=== PATIENT | female | born 1940 | race Caucasian/White ===

== ENCOUNTER 2019-08-23 14:39 | Inpatient (IN) ==
[2019-08-23] MEDS ORDERED: 0.9 % Sodium Chloride 500 ML IVC ONE (15:10)
[2019-08-23 15:30] LABS: Basophils % 0.2 %; Hematocrit 30.4 % (35.3-44.9); Hemoglobin 9.9 g/dL (11.5-15.4); Immature Granulocytes % 0.5 % (0-4); Lymphocytes # 1.1 K/mcL (0.6-4.6); Lymphocytes % 25.3 %; Mean Corpuscular HGB Conc 32.6 g/dL (31.6-35.5); Mean Corpuscular Hemoglobin 28.3 pg (28.0-33.3); Mean Corpuscular Volume 86.9 fL (83.0-100.0); Mean Platelet Volume 9.8 fL (9.4-12.4); Monocytes # 0.2 K/mcL (0.0-1.3); Monocytes % 3.4 %; Neutrophils # 3.1 K/mcL (1.6-8.9); Platelet Count 145 K/mcL (140-400); Red Cell Distribution Width 15.9 % (11.5-14.5); Segmented Neutrophils % 70.6 %; White Blood Count 4.4 K/mcL (4.3-11.1)
[2019-08-23 15:52] LABS: Calcium 7.9 mg/dL (8.6-10.3); Potassium 3.7 mEq/L (3.5-5.1); Troponin I 0.03 ng/mL (< 0.04)
[2019-08-23] MEDS ORDERED: Isovue-370 500 ML BOTTLE IVP ONE (16:12)
[2019-08-23] MEDS ORDERED: *HR* Enoxaparin 40 MG/0.4 ML SYRINGE SQ ONE (17:34)
[2019-08-23 18:01] LABS: Bilirubin,Urine Negative (Negative); Blood,Urine Negative (Negative); Clarity,Urine Clear (Clear); Color,Urine Yellow (Yellow); Glucose,Urine (UA) Normal (Normal); Ketones,Urine Negative (Negative); Leukocyte Esterase,Urine Negative (Negative); Nitrite,Urine Negative (Negative); PH,Urine 6.5 pH Units (5.0-8.0); Protein,Urine Negative (Neg-Trace); Specific Gravity,Urine 1.012 (1.010-1.025); Urobilinogen,Urine Normal (Normal)
[2019-08-23 18:06] LABS: Activated Partial Thrombo Time 32.9 Seconds (26.0-36.0)
[2019-08-23] MEDS ORDERED: Naloxone 0.4 MG/ML INJ IVP PRN (19:41)
[2019-08-23] MEDS ORDERED: cefTRIAXone 1,000 MG in Water for inj. (sterile) 10 ML IVP SCH (21:00)
[2019-08-23] MEDS ORDERED: Azithromycin 500 MG in 0.9 % Sodium Chloride 250 ML IVPB SCH (21:00)
[2019-08-23] MEDS: Acetaminophen 325 MG TABLET PO PRN (23:59)
[2019-08-24 01:46] LABS: Adenovirus Not Detected (Not Detect); Bordetella Pertussis Not Detected (Not Detect); Chlamydophila pneumoniae Not Detected (Not Detect); Coronavirus 229E Not Detected (Not Detect); Coronavirus HKU1 Not Detected (Not Detect); Coronavirus NL63 Not Detected (Not Detect); Coronavirus OC43 Not Detected (Not Detect); Human Metapneumovirus Not Detected (Not Detect); Human Rhinovirus/Enterovirus Not Detected (Not Detect); Influenza A Subtype 2009 H1 Not Detected (Not Detect); Influenza B Not Detected (Not Detect); Mycoplasma pneumoniae Not Detected (Not Detect); Parainfluenza Virus 1 Not Detected (Not Detect); Parainfluenza Virus 2 Not Detected (Not Detect); Parainfluenza Virus 3 Not Detected (Not Detect); Parainfluenza Virus 4 Not Detected (Not Detect); Respiratory Syncytial Virus Not Detected (Not Detect)
[2019-08-24 02:11] LABS: Mean Corpuscular HGB Conc 33.3 g/dL (31.6-35.5); Mean Corpuscular Hemoglobin 28.2 pg (28.0-33.3); Mean Corpuscular Volume 84.7 fL (83.0-100.0); Mean Platelet Volume 9.4 fL (9.4-12.4); Platelet Count 134 K/mcL (140-400); Red Blood Count 3.54 M/mcL (3.82-4.97); Red Cell Distribution Width 15.6 % (11.5-14.5); White Blood Count 3.4 K/mcL (4.3-11.1)
[2019-08-24 02:18] LABS: Prothrombin Time 11.6 Seconds (9.4-12.1)
[2019-08-24 02:20] LABS: Activated Partial Thrombo Time 45.2 Seconds (26.0-36.0)
[2019-08-24 02:31] LABS: BUN/Creatinine Ratio 13 (6-26); Blood Urea Nitrogen 10 mg/dL (8-23); Calcium 7.8 mg/dL (8.6-10.3); Carbon Dioxide 26 mEq/L (23-29); Chloride 104 mEq/L (98-107); Glucose 101 mg/dL (70-105); Osmolality,Calculated 283 (280-300); Potassium 3.3 mEq/L (3.5-5.1); Sodium 137 mEq/L (136-145); eGFR For African Americans > 60 (> 60); eGFR For Non-African Americans > 60 (> 60)
[2019-08-24] MEDS ORDERED: *HR* Heparin 5,000 UNIT/ML VIAL IVP PRN ×2 (05:00)
[2019-08-24] MEDS ORDERED: Heparin 25,000 UNIT/250 ML D5W 25,000 UNIT/250 ML IV.SOLN IVC SCH (05:00)
[2019-08-24] MEDS: Acetaminophen 325 MG TABLET PO PRN ×3 (05:30→21:01)
[2019-08-24] MEDS: *HR* Amiodarone 200 MG TABLET PO SCH (12:32)
[2019-08-24] MEDS: QUEtiapine Fumarate 25 MG TABLET PO SCH (21:01)
[2019-08-24] MEDS: traZODone 50 MG TABLET PO SCH (21:02)
[2019-08-24] MEDS ORDERED: cefTRIAXone 2,000 MG in Water for inj. (sterile) 20 ML IVP SCH (23:00)
[2019-08-25 03:46] LABS: Basophils % 0.3 %; Hematocrit 31.3 % (35.3-44.9); Hemoglobin 10.2 g/dL (11.5-15.4); Immature Granulocytes % 0.3 % (0-4); Lymphocytes # 1.4 K/mcL (0.6-4.6); Lymphocytes % 44.2 %; Mean Corpuscular HGB Conc 32.6 g/dL (31.6-35.5); Mean Corpuscular Hemoglobin 27.9 pg (28.0-33.3); Mean Corpuscular Volume 85.8 fL (83.0-100.0); Mean Platelet Volume 9.4 fL (9.4-12.4); Monocytes # 0.3 K/mcL (0.0-1.3); Neutrophils # 1.4 K/mcL (1.6-8.9); Platelet Count 161 K/mcL (140-400); Red Blood Count 3.65 M/mcL (3.82-4.97); Red Cell Distribution Width 15.9 % (11.5-14.5); Segmented Neutrophils % 46.2 %; White Blood Count 3.1 K/mcL (4.3-11.1)
[2019-08-25 04:09] LABS: BUN/Creatinine Ratio 11 (6-26); Blood Urea Nitrogen 8 mg/dL (8-23); Carbon Dioxide 28 mEq/L (23-29); Chloride 104 mEq/L (98-107); Glucose 92 mg/dL (70-105); Osmolality,Calculated 282 (280-300); Potassium 3.9 mEq/L (3.5-5.1); Sodium 137 mEq/L (136-145); eGFR For African Americans > 60 (> 60); eGFR For Non-African Americans > 60 (> 60)
[2019-08-25] MEDS: *HR* Amiodarone 200 MG TABLET PO SCH (09:05)
[2019-08-25] MEDS: Acetaminophen 325 MG TABLET PO PRN (09:05)
[2019-08-25] MEDS: *HR* HYDROcodone/Acet 5/325 mg TABLET PO PRN (17:24)
[2019-08-25] MEDS: Acetaminophen 325 MG TABLET PO SCH (17:59)
[2019-08-25] MEDS ORDERED: cefTRIAXone 2,000 MG in Water for inj. (sterile) 20 ML IVP SCH (21:00)
[2019-08-25] MEDS: Azithromycin 250 MG TABLET PO SCH (21:17)
[2019-08-25] MEDS: QUEtiapine Fumarate 25 MG TABLET PO SCH (21:18)
[2019-08-25] MEDS: traZODone 50 MG TABLET PO SCH (21:18)
[2019-08-25] MEDS: Ondansetron ODT 4 MG TAB.RAPDIS SL PRN (21:18)
[2019-08-25] MEDS: ALPRAZolam 0.5 MG TABLET PO SCH (21:18)
[2019-08-25] MEDS ORDERED: Azithromycin 500 MG in 0.9 % Sodium Chloride 250 ML IVPB SCH (23:00)
[2019-08-26 04:29] LABS: Basophils % 0.4 %; Eosinophils % 0.4 %; Hematocrit 31.9 % (35.3-44.9); Hemoglobin 10.3 g/dL (11.5-15.4); Immature Granulocytes % 0.4 % (0-4); Lymphocytes # 1.6 K/mcL (0.6-4.6); Lymphocytes % 56.5 %; Mean Corpuscular HGB Conc 32.3 g/dL (31.6-35.5); Mean Corpuscular Hemoglobin 27.8 pg (28.0-33.3); Mean Corpuscular Volume 86.2 fL (83.0-100.0); Mean Platelet Volume 9.2 fL (9.4-12.4); Monocytes # 0.3 K/mcL (0.0-1.3); Monocytes % 10.1 %; Neutrophils # 0.9 K/mcL (1.6-8.9); Platelet Count 179 K/mcL (140-400); Segmented Neutrophils % 32.2 %; White Blood Count 2.8 K/mcL (4.3-11.1)
[2019-08-26 05:10] LABS: Platelet Estimate Normal (Normal); Reactive Lymphocytes Present (Not Present)
[2019-08-26] MEDS: Acetaminophen 325 MG TABLET PO SCH ×2 (06:31→18:17)
[2019-08-26] MEDS: Furosemide 40 MG TABLET PO SCH (08:11)
[2019-08-26] MEDS: *HR* Amiodarone 200 MG TABLET PO SCH (08:11)
[2019-08-26] MEDS: Cefdinir 300 MG CAPSULE PO SCH (21:02)
[2019-08-26] MEDS: *HR* HYDROcodone/Acet 5/325 mg TABLET PO PRN (21:02)
[2019-08-26] MEDS: Azithromycin 250 MG TABLET PO SCH (21:02)
[2019-08-26] MEDS: traZODone 50 MG TABLET PO SCH (21:03)
[2019-08-26] MEDS: QUEtiapine Fumarate 25 MG TABLET PO SCH (21:03)
[2019-08-26] MEDS: ALPRAZolam 0.5 MG TABLET PO SCH (21:03)
[2019-08-27] MEDS: Acetaminophen 325 MG TABLET PO SCH ×2 (06:12→19:31)
[2019-08-27] MEDS: *HR* Amiodarone 200 MG TABLET PO SCH (09:48)
[2019-08-27] MEDS: Furosemide 40 MG TABLET PO SCH (09:48)
[2019-08-27] MEDS: Cefdinir 300 MG CAPSULE PO SCH ×2 (09:48→21:18)
[2019-08-27] MEDS: *HR* HYDROcodone/Acet 5/325 mg TABLET PO PRN ×2 (09:53→16:26)
[2019-08-27] MEDS: ALPRAZolam 0.5 MG TABLET PO SCH (21:18)
[2019-08-27] MEDS: Azithromycin 250 MG TABLET PO SCH (21:18)
[2019-08-27] MEDS: QUEtiapine Fumarate 25 MG TABLET PO SCH (21:19)
[2019-08-27] MEDS: traZODone 50 MG TABLET PO SCH (21:19)
[2019-08-28 04:19] LABS: Basophils % 0.3 %; Eosinophils % 0.8 %; Hematocrit 31.9 % (35.3-44.9); Immature Granulocytes % 0.3 % (0-4); Lymphocytes # 1.4 K/mcL (0.6-4.6); Lymphocytes % 37.1 %; Mean Corpuscular HGB Conc 31.3 g/dL (31.6-35.5); Mean Corpuscular Hemoglobin 27.4 pg (28.0-33.3); Mean Corpuscular Volume 87.4 fL (83.0-100.0); Mean Platelet Volume 9.6 fL (9.4-12.4); Monocytes # 0.4 K/mcL (0.0-1.3); Monocytes % 10.7 %; Platelet Count 207 K/mcL (140-400); Red Blood Count 3.65 M/mcL (3.82-4.97); Red Cell Distribution Width 16.3 % (11.5-14.5); Segmented Neutrophils % 50.8 %; White Blood Count 3.8 K/mcL (4.3-11.1)
[2019-08-28 04:21] LABS: Neutrophils # 1.9 K/mcL (1.6-8.9)
[2019-08-28 04:35] LABS: Anisocytosis 1+ (Not Present); Platelet Estimate Normal (Normal); Reactive Lymphocytes Present (Not Present)
[2019-08-28 04:37] LABS: BUN/Creatinine Ratio 12 (6-26); Blood Urea Nitrogen 10 mg/dL (8-23); Calcium 8.6 mg/dL (8.6-10.3); Carbon Dioxide 25 mEq/L (23-29); Chloride 103 mEq/L (98-107); Glucose 67 mg/dL (70-105); Osmolality,Calculated 283 (280-300); Potassium 3.4 mEq/L (3.5-5.1); Sodium 138 mEq/L (136-145); eGFR For African Americans > 60 (> 60); eGFR For Non-African Americans > 60 (> 60)
[2019-08-28] MEDS: Acetaminophen 325 MG TABLET PO SCH ×2 (06:04→18:42)
[2019-08-28] MEDS: Furosemide 40 MG TABLET PO SCH (07:52)
[2019-08-28] MEDS: *HR* Amiodarone 200 MG TABLET PO SCH (07:52)
[2019-08-28] MEDS: Cefdinir 300 MG CAPSULE PO SCH ×2 (07:53→22:58)
[2019-08-28] MEDS: *HR* HYDROcodone/Acet 5/325 mg TABLET PO PRN ×2 (08:36→23:56)
[2019-08-28] MEDS: ALPRAZolam 0.5 MG TABLET PO PRN (15:03)
[2019-08-28] MEDS: QUEtiapine Fumarate 25 MG TABLET PO SCH (22:58)
[2019-08-28] MEDS: ALPRAZolam 0.5 MG TABLET PO SCH (22:58)
[2019-08-28] MEDS: Azithromycin 250 MG TABLET PO SCH (22:58)
[2019-08-28] MEDS: traZODone 50 MG TABLET PO SCH (22:58)
[2019-08-29] MEDS: Acetaminophen 325 MG TABLET PO SCH (04:53)
[2019-08-29 05:21] LABS: Basophils % 0.2 %; Eosinophils # 0.1 K/mcL (0.0-0.6); Eosinophils % 1.6 %; Hematocrit 33.3 % (35.3-44.9); Hemoglobin 10.6 g/dL (11.5-15.4); Immature Granulocytes % 0.5 % (0-4); Lymphocytes # 1.5 K/mcL (0.6-4.6); Lymphocytes % 34.7 %; Mean Corpuscular HGB Conc 31.8 g/dL (31.6-35.5); Mean Corpuscular Hemoglobin 27.3 pg (28.0-33.3); Mean Corpuscular Volume 85.8 fL (83.0-100.0); Mean Platelet Volume 9.2 fL (9.4-12.4); Monocytes # 0.5 K/mcL (0.0-1.3); Monocytes % 10.6 %; Neutrophils # 2.3 K/mcL (1.6-8.9); Platelet Count 249 K/mcL (140-400); Red Blood Count 3.88 M/mcL (3.82-4.97); Segmented Neutrophils % 52.4 %; White Blood Count 4.4 K/mcL (4.3-11.1)
[2019-08-29 05:37] LABS: Platelet Estimate Normal (Normal); Reactive Lymphocytes Present (Not Present)
[2019-08-29 05:44] LABS: BUN/Creatinine Ratio 14 (6-26); Blood Urea Nitrogen 12 mg/dL (8-23); Calcium 8.6 mg/dL (8.6-10.3); Carbon Dioxide 28 mEq/L (23-29); Chloride 103 mEq/L (98-107); Glucose 78 mg/dL (70-105); Osmolality,Calculated 285 (280-300); Potassium 3.7 mEq/L (3.5-5.1); Sodium 138 mEq/L (136-145); eGFR For African Americans > 60 (> 60); eGFR For Non-African Americans > 60 (> 60)
[2019-08-29] MEDS: ALPRAZolam 0.5 MG TABLET PO PRN (07:02)
[2019-08-29] MEDS: Cefdinir 300 MG CAPSULE PO SCH (08:25)
[2019-08-29] MEDS: *HR* Amiodarone 200 MG TABLET PO SCH (08:25)
[2019-08-29] MEDS: Furosemide 40 MG TABLET PO SCH (08:26)
[2019-08-29] MEDS ORDERED: Sennosides/Docusate Sodium TABLET PO PRN (09:47)
[2019-08-29] MEDS: *HR* HYDROcodone/Acet 5/325 mg TABLET PO PRN (18:22)
[2019-08-29] MEDS: traZODone 50 MG TABLET PO SCH (21:32)
[2019-08-29] MEDS: QUEtiapine Fumarate 25 MG TABLET PO SCH (21:32)
[2019-08-29] MEDS: ALPRAZolam 0.5 MG TABLET PO SCH (21:32)
[2019-08-30] MEDS: *HR* Amiodarone 200 MG TABLET PO SCH (10:01)
[2019-08-30] MEDS: Furosemide 40 MG TABLET PO SCH (10:01)
[2019-08-30] MEDS: ALPRAZolam 0.5 MG TABLET PO PRN (12:50)
[2019-08-30] MEDS: *HR* HYDROcodone/Acet 5/325 mg TABLET PO PRN (15:03)
[2019-08-30] MEDS: ALPRAZolam 0.5 MG TABLET PO SCH (21:52)
[2019-08-30] MEDS: traZODone 50 MG TABLET PO SCH (21:52)
[2019-08-30] MEDS: QUEtiapine Fumarate 25 MG TABLET PO SCH (21:52)
[2019-08-31] MEDS: *HR* Amiodarone 200 MG TABLET PO SCH (09:08)
[2019-08-31] MEDS: Furosemide 40 MG TABLET PO SCH (09:08)
[2019-08-31] MEDS: *HR* HYDROcodone/Acet 5/325 mg TABLET PO PRN (20:48)
[2019-08-31] MEDS: traZODone 50 MG TABLET PO SCH (20:48)
[2019-08-31] MEDS: ALPRAZolam 0.5 MG TABLET PO SCH (20:48)
[2019-08-31] MEDS: QUEtiapine Fumarate 25 MG TABLET PO SCH (20:49)
[2019-09-01] MEDS: Furosemide 40 MG TABLET PO SCH (11:02)
[2019-09-01] MEDS: *HR* Amiodarone 200 MG TABLET PO SCH (11:02)
[2019-09-01] MEDS ORDERED: Lactulose Oral Soln 20 GM/30 ML UDC PO PRN (13:33)
[2019-09-01] MEDS: *HR* HYDROcodone/Acet 5/325 mg TABLET PO PRN (14:12)
[2019-09-01] MEDS: ALPRAZolam 0.5 MG TABLET PO PRN (14:55)
[2019-09-01] MEDS: traZODone 50 MG TABLET PO SCH (20:25)
[2019-09-01] MEDS: ALPRAZolam 0.5 MG TABLET PO SCH (20:25)
[2019-09-01] MEDS: QUEtiapine Fumarate 25 MG TABLET PO SCH (20:25)
[2019-09-02] MEDS: Furosemide 40 MG TABLET PO SCH (10:43)
[2019-09-02] MEDS: *HR* Amiodarone 200 MG TABLET PO SCH (10:43)
[2019-09-02] MEDS: *HR* HYDROcodone/Acet 5/325 mg TABLET PO PRN (18:03)
[2019-09-02] MEDS: QUEtiapine Fumarate 25 MG TABLET PO SCH (20:55)
[2019-09-02] MEDS: ALPRAZolam 0.5 MG TABLET PO SCH (20:55)
[2019-09-02] MEDS: traZODone 50 MG TABLET PO SCH (20:55)
[2019-09-03] MEDS: *HR* Amiodarone 200 MG TABLET PO SCH (09:38)
[2019-09-03] MEDS: Furosemide 40 MG TABLET PO SCH (09:38)
[2019-09-03] MEDS: *HR* HYDROcodone/Acet 5/325 mg TABLET PO PRN ×2 (10:14→17:54)
[2019-09-03] MEDS: Ondansetron ODT 4 MG TAB.RAPDIS SL PRN (18:12)
[2019-09-03] MEDS: ALPRAZolam 0.5 MG TABLET PO PRN (18:12)
[2019-09-03] MEDS: traZODone 50 MG TABLET PO SCH (21:09)
[2019-09-03] MEDS: QUEtiapine Fumarate 25 MG TABLET PO SCH (21:09)
[2019-09-03] MEDS: ALPRAZolam 0.5 MG TABLET PO SCH (21:09)
[2019-09-04] MEDS: Furosemide 40 MG TABLET PO SCH (08:42)
[2019-09-04] MEDS: *HR* Amiodarone 200 MG TABLET PO SCH (08:42)
[2019-09-04] MEDS: *HR* HYDROcodone/Acet 5/325 mg TABLET PO PRN (13:16)
[2019-09-04] MEDS: traZODone 50 MG TABLET PO SCH (20:46)
[2019-09-04] MEDS: QUEtiapine Fumarate 25 MG TABLET PO SCH (20:46)
[2019-09-04] MEDS: ALPRAZolam 0.5 MG TABLET PO SCH (20:46)
[2019-09-05 08:16] VITALS: BP 114/56
[2019-09-05] MEDS: *HR* Amiodarone 200 MG TABLET PO SCH (08:20)
[2019-09-05] MEDS: Furosemide 40 MG TABLET PO SCH (08:20)
== END 2019-09-05 11:41 | disposition hospice, home (50) | DRG 177 ==
LOC: EMEROOARM 14:39 → 2NENU 14:39 → SUATTDRO 18:07 → 2NENU 18:35 → SUATTDRO 08-24 12:19
PROVIDERS: ADMIT Family Medicine; ATTEND Internal Medicine